=== PATIENT | female | born 1985 | race Caucasian/White ===

== ENCOUNTER 2021-12-07 11:37 | Emergency (ER) | payer OTHER ==
[~2021-12-07] VITALS: Ht 165.1 cm; Wt 70.3 kg
[2021-12-07 11:46] VITALS: BP_SYST 123
--- NOTE | 2021-12-07 12:11 | NUR ---
Urine completed and resutls were negative.
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
--- NOTE | 2021-12-07 12:25 | NUR ---
Dr La evaluating patient in the triage room
[2021-12-07 13:30] VITALS: BP_SYST 123
--- NOTE | 2021-12-07 13:32 | NUR ---
Patient given written and verbal discharge instructions and verbalizes understanding. ER MD discussed with patient the results and treatment provided. Patient in stable condition. ID arm band removed. No Rx given. Patient educated on pain management and to follow up with PMD. Pain Scale 0/10 . Opportunity for questions provided and answered. Medication side effect fact sheet provided.
== END 2021-12-07 13:30 | disposition home or self-care (01) ==
LOC: SED 11:37 → EDBD 11:37 → SED 13:30
DX: S13.4XXA Sprain of ligaments of cervical spine, initial encounter (principal); S43.401A Unspecified sprain of right shoulder joint, initial encounter; S70.02XA Contusion of left hip, initial encounter; W18.39XA Other fall on same level, initial encounter; Y93.89 Activity, other specified; Y92.89 Other specified places as the place of occurrence of the external cause; Y99.8 Other external cause status
CPT/HCPCS: 72040-TC; 72170-TC; 73030; 81025; 99284